=== PATIENT | male | born 1960 | race Caucasian/White ===

== ENCOUNTER 2019-06-03 17:32 | Emergency (ER) | payer MEDICAID ==
[~2019-06-03] VITALS: Ht 182.9 cm; Wt 72.6 kg
[2019-06-03 17:43] VITALS: BP 126/69
== END 2019-06-03 18:31 | disposition home or self-care (01) ==
LOC: ER 17:37
DX: B02.9 Zoster without complications (principal); F17.200 Nicotine dependence, unspecified, uncomplicated; Z98.890 Other specified postprocedural states

== ENCOUNTER 2025-01-31 12:03 | Emergency (ER) | payer MEDICAID, OTHER ==
[~2025-01-31] VITALS: Ht 182.9 cm; Wt 70.3 kg
[2025-01-31 13:37] VITALS: BP 127/76; TEMP 98.5; O2SAT 99
== END 2025-01-31 13:38 | disposition home or self-care (01) ==
LOC: ER 12:16
DX: S13.4XXA Sprain of ligaments of cervical spine, initial encounter (principal); S80.01XA Contusion of right knee, initial encounter; F17.200 Nicotine dependence, unspecified, uncomplicated; V43.02XA Car driver injured in collision with other type car in nontraffic accident, initial encounter; Y93.89 Activity, other specified; Y92.415 Exit ramp or entrance ramp of street or highway as the place of occurrence of the external cause; Y99.8 Other external cause status